=== PATIENT | female | born 1995 | race Caucasian/White ===

== ENCOUNTER → 2017-09-08 21:19 | Observation (INO) ==
--- NOTE | 2017-09-08 21:09 | Discharge Summary ---
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 (2) NST (non-stress test) reactive Priority: Secondary Status: Acute Comments: Reactive FHT 145, 10x10 accelerations, moderate variability. (3) Decreased movement during in second trimester, antepartum Priority: Primary Status: Acute Comments: Patient reports feeling positive movement on the monitor. -Reactive NST -Educate patient on anterior placental location and movement. Qualifiers: Fetus number: single or unspecified fetus Qualified Code(s): O36.8120 - Decreased movements, second trimester, not applicable or unspecified - Discharge Medications Home Medications: Pepcid 09/08/17 [History] Multi Tablet 09/08/17 [History] Allergies/Adverse Reactions: 3 Allergy/AdvReac Type Severity Reaction Status Date / Time No Known Allergies Allergy Verified 07/15/17 14:49 Date of admission: 09/08/17 20:16 Discharging clinician: Hiral Enciso Anticipated date of discharge: 09/08/17 - Patient Status Disposition: Home, Self-Care Condition: Good Functional capacity at discharge: independent ambulation Overall status at discharge: patient is back to baseline - Discharge Instructions Follow Up With: Layla Nicholas CNM [Advanced Practice Nurse] - Additional Instructions: LABOR AND DELIVERY DISCHARGE INSTRUCTIONS Signs and Symptoms to be Reported to your Doctor Immediately: * Sudden gush, continuous or intermittent lead of fluid from vagina (note the time of gush and color of fluid) * Onset of bright red vaginal bleeding with or without pain (if you had a vaginal exam during this visit you may notice some dark red spotting. This is normal.) * Lower abdominal cramping or backache that is premenstrual-like feeling. * More than 6 contractions in one hour. * Burning during urination, having to urinate more frequently or pain in your mid-back. * A change in the baby's activity. This could be an increase or decrease in activity. * Severe headache which does not go away with tylenol. * Sudden swelling in the face, hands, arms and/or legs. * Upper abdominal pain - sometimes associated with heartburn or nausea and is not relieved by Maalox, Mylanta or Tums. * Dizziness or blurred vision or visual disturbances (seeing stars/lights). * Kick Counts One hour after a meal, lay down on one side in a quiet place. Count the number of juliet the baby moves during an hour. If less than 6 movements, notify your physician. Diet: *Force fluids - 8-10 tall glasses of fluid per day. May include popsicles and jello. 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 Patient reports drink cold water and resting still unable to feel movement. Patient denies contractions, LOF or VB. After being placed on monitor patient began to feel movement. NST appropriate for gestational age. Plan to discharge home and follow up in office as scheduled. Patient educated on placental location and kick counts. Patient denies any questions or concerns. Time Attestation: Total time spent providing and/or coordinating discharge services: Time Spent: Less than 30 minutes Exam - Constitutional Vitals: 125/64, 83, 16, 98.2 General appearance IM: A&O X 3, pleasant, no acute distress - Respiratory Respiratory exam: Present: CTAB - Cardiovascular Cardiovascular exam IM: Present: RRR, systolic murmur (ejection murmur c/w functional flow murmur of ) - GI/Abdominal GI/Abdominal exam IM: normal bowel sounds, soft, no peritoneal signs - Uterus Position: 3 Fingers Above Umbilicus - Extremities Exam Extremities exam IM: Present: normal inspection, radial pulses palpable and symmetrical. Absent: pedal edema - Neurological Exam Neurological exam: no focal deficits - Other Additional findings: FHT 145, NST reactive with 10x10 accels and moderate variability. - VTE Reasons for not Prescribing Prophylaxis: Treatment not Indicated - Low risk for VTE - Attending Attestation I examined this patient and my medical decision-making was reviewed with the Resident Physician. I agree with the documented findings, disposition and treatment plan as described except to the extent set forth below. ANGELA Licea
== END | disposition home or self-care (01) ==
LOC: 1NENULAB
PROVIDERS: ADMIT Advanced Practice Midwife; ATTEND Advanced Practice Midwife

== ENCOUNTER → 2017-09-25 16:04 | Observation (INO) ==
[2017-09-25 15:21] LABS: Bilirubin,Urine Negative (Negative); Blood,Urine Negative (Negative); Clarity,Urine Cloudy (Clear); Color,Urine Yellow (Yellow); Glucose,Urine (UA) Normal (Normal); Ketones,Urine 15 mg/dL (Negative); Leukocyte Esterase,Urine Moderate (Negative); Nitrite,Urine Negative (Negative); PH,Urine 6.5 pH Units (5.0-8.0); Protein,Urine Negative (Neg-Trace); Specific Gravity,Urine 1.029 (1.010-1.025); Urobilinogen,Urine Normal (Normal)
[2017-09-25 15:23] LABS: Bacteria,Urine Moderate per hpf (None-Few); Hyaline Casts,Urine None Seen per lpf (None-Few); RBC,Urine 0-3 per hpf (0-3); Squamous Epithelial Cell,Urine Many per lpf (None-Few)
--- NOTE | 2017-09-25 15:54 | OB/GYN Progress Note ---
Date of Encounter: 09/25/17 Time of Encounter: 15:51 - Assessment and Plan (1) 28 weeks gestation of Current Visit: Yes Status: Acute Patient appears healthy in the room. NST with baseline 130BPM and reactive for GA. (2) Dehydration Current Visit: Yes Status: Acute Patient had significant ketones and increased specific gravity of the urine. Discussed the patient importance of remaining hydrated. The patient does have a bottle of pop at her bedside. Discussed the importance of drinking 8-10 glasses of water daily and the importance of decreasing her caffeinated beverage intake. Discussed if at any time she experiences worsening of her symptoms such as lightheadedness, feeling like she is going to pass out, headache, nausea, vomiting, shortness of breath, vaginal bleeding/discharge, decreased movement, or any concerning symptoms return to [place] for further evaluation and treatment. Subjective - Subjective Principal diagnosis: 28 weeks gestation; fatigue Interval history: Patient is a 22-year-old female with past medical history of presenting at 28 weeks and 5 days gestational age with a complaint of weakness. Patient states that she is having a glucose tolerance test done 3 days ago and since that time she has not felt well. She said today she was at [facility] having a finger fracture reevaluated and what her blood pressure was taken the staff told her that it was low. At this time the patient is denying any other symptoms such as fever, chills, cough or congestion, chest pain, shortness of breath, abdominal pain, flank pain, dysuria, vaginal bleeding or discharge, no cramping, no lower extremity numbness or tingling or swelling, and no headache or vision changes. Patient states that her last was at 35 weeks and she had episodes of lightheadedness and syncope and was diagnosed in the ER was having a placental tear in which she was leaking amniotic fluid which was first diagnosed at 25 weeks gestational age. However states that these symptoms are different from that time. They are not as severe. She states she has been eating and drinking okay. She states sometimes when she is feeling weak she has a caffeinated beverage in that improves her symptoms. States she is drinking plenty of water. She denies any nausea, vomiting or diarrhea. Patient sees Dr. Abel. Antepartum ROS: new complaints, movement normal Objective - Vital Signs Vital Signs: Temp 97.9F, HR 80, RR 18, BP 125/64 - Exam FHR: auscultation normal Auscultation: bilateral: normal Abdomen: Present: normal appearance, soft. Absent: tenderness Uterus: Present: normal. Absent: tenderness Comments: Patient is a well-appearing 22-year-old female at 28 weeks and 5 days gestational age. Patient's physical exam was essentially normal. Neurologically the patient is intact with no focal deficits. Heart and lung sounds were normal. No lower extremity edema. - Labs Labs: Abnormal lab results Urine Clarity Cloudy (Clear) A 09/25/17 15:17 Ur Specific [place] 1.029 (1.010-1.025) H 09/25/17 15:17 Urine Ketones 15 mg/dL (Negative) H 09/25/17 15:17 Ur Leukocyte Esterase Moderate (Negative) H 09/25/17 15:17 Urine Microscopic WBC 5-15 per hpf (0-3) H 09/25/17 15:17 Ur Squamous Epith Cells Many per lpf (None-Few) H 09/25/17 15:17 Urine Bacteria Moderate per hpf (None-Few) H 09/25/17 15:17 Ur Culture Indicated? YES (NO) A 09/25/17 15:17
[2017-09-25 23:05] LABS: Amphetamine Screen,Urine Negative ng/mL (Cutoff=1000); Barbiturate Screen,Urine Negative ng/mL (Cutoff=200); Benzodiazepines Screen,Urine Negative ng/mL (Cutoff=200); Cannabinoid Screen,Urine Negative ng/mL (Cutoff = 50); Cocaine Screen,Urine Negative ng/mL (Cutoff= 300); Opiate Screen,Urine Negative ng/mL (Cutoff=300); Phencyclidine Screen,Urine Negative ng/mL (Cutoff=25)
== END | disposition home or self-care (01) ==
LOC: 1NENULAB
PROVIDERS: ADMIT Student in an Organized Health Care Education/Training Program; ATTEND Student in an Organized Health Care Education/Training Program

== ENCOUNTER 2017-11-20 11:24 | Observation (INO) ==
[2017-11-20 12:14] LABS: Prothrombin Time 11.2 Seconds (9.4-12.1)
[2017-11-20 12:16] LABS: Activated Partial Thrombo Time 29.2 Seconds (26.0-36.0)
[2017-11-20 12:22] LABS: Amphetamine Screen,Urine Negative ng/mL (Cutoff=1000); Barbiturate Screen,Urine Negative ng/mL (Cutoff=200); Benzodiazepines Screen,Urine Negative ng/mL (Cutoff=200); Cannabinoid Screen,Urine Negative ng/mL (Cutoff = 50); Cocaine Screen,Urine Negative ng/mL (Cutoff= 300); Opiate Screen,Urine Negative ng/mL (Cutoff=300); Phencyclidine Screen,Urine Negative ng/mL (Cutoff=25)
--- NOTE | 2017-11-20 13:09 | OB/GYN Progress Note ---
Date of Encounter: 11/20/17 Time of Encounter: 13:06 - Assessment and Plan (1) 36 weeks gestation of Current Visit: Yes Status: Acute admitted for observation (2) Fall Current Visit: Yes Status: Acute monitoring for 6 hours post fall time Coags wnreyes Qualifiers: Encounter type: initial encounter Qualified Code(s): W19.XXXA - Unspecified fall, initial encounter (3) NST (non-stress test) reactive Current Visit: No Status: Acute baseline 125 bpm moderate variability +15x15 accels no decels noted. CAt. 1 tracing Subjective - Subjective Principal diagnosis: fall at 36w5d Interval history: Patient is a 22 y/o at 36w5d presents to labor and delivery with complaints of a fall this morning around 0800. Patient reports she was squatting down to put air in her car tire and slipped on the ice. Patient fell on right hip. No contact with abdomen. Patient reports irregular contractions and +FM. Patient denies LOF or VB. Antepartum ROS: movement normal, contractions, no loss of fluid, no vaginal bleeding Objective - Vital Signs Vital Signs: Intake and Output 11/19/17 11/20/17 11/20/17 23:59 07:59 15:59 Other: Weight 63.9 kg Patient Weight 11/20/17 23:59 Weight 63.9 kg - Exam FHR: auscultation normal, category 1 FHR comments: 125 bpm moderate variability +15x15 accels no decels noted. CAt. 1 tracing. Irregular contractions noted. Abdomen: Present: normal appearance, soft, gravid Uterus: Present: normal Comments: skin red on right hip, no bruising noted at this time. Patient declines need for pain intervention. - Labs Labs: Abnormal lab results Fibrinogen 509 mg/dL (169-393) H 11/20/17 11:45
--- NOTE | 2017-11-20 14:14 | Discharge Summary ---
Date of Encounter: 11/20/17 Time of Encounter: 14:13 - Discharge Diagnosis (1) 36 weeks gestation of Priority: Secondary Status: Acute Comments: admitted for observation (2) Fall Priority: Primary Status: Acute Comments: Reactive NST monitoring up to 6 hours from fall time Qualifiers: Encounter type: initial encounter Qualified Code(s): W19.XXXA - Unspecified fall, initial encounter (3) NST (non-stress test) reactive Priority: Secondary Status: Acute Comments: baseline 130 bpm moderate variability +15x15 accels no decels noted. Irregular contractions - Discharge Medications Home Medications: Multi Tablet 1 cap PO DAILY 09/08/17 [History] Allergies/Adverse Reactions: 3 Allergy/AdvReac Type Severity Reaction Status Date / Time No Known Allergies Allergy Verified 11/20/17 11:47 Data Procedures and tests throughout hospitalization: Laboratory Tests 11/20/17 11/20/17 11:45 11:45 PT 11.2 INR 1.0 APTT 29.2 Fibrinogen 509 H Urine Opiates Screen Negative Ur Barbiturates Screen Negative Ur Phencyclidine Scrn Negative Ur Amphetamines Screen Negative U Benzodiazepines Scrn Negative Urine Cocaine Screen Negative U Marijuana (THC) Screen Negative Labs on day of discharge: Labs from last 24 hours 11/20/17 11/20/17 11:45 11:45 PT 11.2 INR 1.0 APTT 29.2 Fibrinogen 509 H Urine Opiates Screen Negative Ur Barbiturates Screen Negative Ur Phencyclidine Scrn Negative Ur Amphetamines Screen Negative U Benzodiazepines Scrn Negative Urine Cocaine Screen Negative U Marijuana (THC) Screen Negative Date of admission: 11/20/17 11:24 Primary care physician: PCP NONE Discharging clinician: Hiral Enciso Anticipated date of discharge: 11/20/17 - Patient Status Disposition: Home, Self-Care Condition: Good Functional capacity at discharge: independent ambulation - Discharge Instructions Follow Up With: NONE,PCP [Primary Care Provider] - Hiral Enciso CNM [Non-Partnered Physician] - - Diet and Activity Activity: increase activity as tolerated Diet: regular diet 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 Cat. 1 tracing. SVE: /-1 - VTE Reasons for not Prescribing Prophylaxis: Treatment not Indicated - Low risk for VTE
== END 2017-11-20 14:22 | disposition home or self-care (01) ==
LOC: 1NENULAB
PROVIDERS: ADMIT Obstetrics & Gynecology; ATTEND Obstetrics & Gynecology

== ENCOUNTER 2017-12-07 06:00 | Inpatient (IN) ==
[2017-12-07] MEDS ORDERED: Famotidine 20 MG/2 ML VIAL IVP PRN (06:14)
[2017-12-07] MEDS ORDERED: Naloxone 0.4 MG/ML INJ IVP PRN (06:14)
[2017-12-07] MEDS ORDERED: Ringers Solution, Lactated 1,000 ML IVC SCH (06:15)
[2017-12-07] MEDS ORDERED: miSOPROStol 100 MCG TABLET PO STA (06:15)
--- NOTE | 2017-12-07 06:27 | OB/GYN History & Physical ---
Date of Encounter: 12/07/17 Time of Encounter: 06:25 Assessment and Plan (1) 39 weeks gestation of Current visit: Yes Status: Acute Patient 39 weeks and 1 day. Plan to do labor induction (2) Elective induction of labor planned Current visit: Yes Status: Acute We will externally monitor fetus at this time. Induced labor with 50 Cytotec by mouth. Recheck in 2-4 hours for cervical change to determine next steps. History of Present Illness HPI: Ms. Roman is a 22 year old female 101 at 39 weeks and 1 day presented to labor and delivery for labor induction. Patient was seen in the office on the and had dilation of 4 cm with 80% effacement and station -1. Patient denies any frequent or recurrent contractions. Denies any vaginal bleeding or pain. Denies any urinary symptoms. Denies any loss of fluid. Denies headaches , nausea or vomiting. Denies chest pain or shortness of breath. Patient otherwise healthy. Currently taking vitamins. Patient is HIV and Treponema negative. Rubella immune. Blood type A positive. Past Med Surg Social Fam HX - Past Medical History Medical history: no medical history Psychiatric history: no psych history - Past Surgical History Surgical History: breast surgery - Social History Smoking Status: Never smoker Smokeless Tobacco Status: No Alcohol use: none Drug use: none - Family History Mother Living Status: Still Living Hx Family Cardiac Disorders: No Hx Family Respiratory Disorders: No Hx Family Cancer: No Hx Family GI Disorders: No Hx Family Endocrine Disorder: No Hx Family Neuromuscular Disorders: No Hx Family Neurologic Disorders: No Hx Family HEENT Disorders: No Hx Family Autoimmune Disorders: No Obstetrical History - Pregnancies : 2 Para: 1 Term: 0 : 1 Ab's: 0 Livin Medications and Allergies Multi Tablet 1 cap PO DAILY 09/08/17 [History] 3 Allergy/AdvReac Type Severity Reaction Status Date / Time No Known Allergies Allergy Verified 12/07/17 06:18 Review of System OB All systems PM: reviewed and no additional remarkable complaints except as stated Exam - Constitutional Constitutional: well developed, well nourished, no acute distress, average body habitus - HEENT HEENT: Normocephaly, Mucus Membranes Moist - Neck Neck exam: full ROM, normal inspection - Lungs Respiratory exam: CTAB - Cardiovascular Cardiovascular exam: RRR - Abdomen Abdomen: Present: bowel sounds normal, gravid, non tender - Extremities Extremities exam: normal inspection - Cervix Dilation: 4 (In office on 11/30) Effacement: 80 Station: -1 - Uterus Uterus exam: Present: enlarged (gravid), normal contour - Comments Comments: I examined this patient and my medical decision-making was reviewed with the Resident Physician. I agree with the documented findings, disposition and treatment plan as described except to the extent set forth below. ANGELA Licea Results Result Diagrams: 12/07/17 06:30 All other labs normal. - VTE Reasons for not Prescribing Prophylaxis: Treatment not Indicated - Low risk for VTE
[2017-12-07] MEDS ORDERED: Ondansetron ODT 4 MG TAB.RAPDIS SL PRN (06:29)
[2017-12-07 06:37] LABS: Basophils % 0.3 %; Eosinophils # 0.1 K/mcL (0.0-0.6); Eosinophils % 0.7 %; Hematocrit 34.7 % (35.3-44.9); Hemoglobin 11.8 g/dL (11.5-15.4); Immature Granulocytes % 0.9 % (0-4); Lymphocytes # 2.4 K/mcL (0.6-4.6); Mean Corpuscular Hemoglobin 28.8 pg (28.0-33.3); Mean Corpuscular Volume 84.6 fL (83.0-100.0); Monocytes # 0.5 K/mcL (0.0-1.3); Monocytes % 4.9 %; Neutrophils # 7.2 K/mcL (1.6-8.9); Platelet Count 203 K/mcL (140-400); Red Cell Distribution Width 12.8 % (11.5-14.5); Segmented Neutrophils % 70.2 %
[2017-12-07 06:47] LABS: Amphetamine Screen,Urine Negative ng/mL (Cutoff=1000); Barbiturate Screen,Urine Negative ng/mL (Cutoff=200); Benzodiazepines Screen,Urine Negative ng/mL (Cutoff=200); Cannabinoid Screen,Urine Negative ng/mL (Cutoff = 50); Cocaine Screen,Urine Negative ng/mL (Cutoff= 300); Opiate Screen,Urine Negative ng/mL (Cutoff=300); Phencyclidine Screen,Urine Negative ng/mL (Cutoff=25)
--- NOTE | 2017-12-07 11:26 | OB Labor Progress Note ---
Date of Encounter: 12/07/17 Time of Encounter: 11:22 Labor Progress Note - Subjective Subjective: Patient sitting up in bed. Patient denies any pain at this time. Discussed POC with patient. Patient denies any questions or concerns. - Cervix Cervix: 5/90/0 - Heart Tones Heart Tones: FHR 145 bpm moderate variability +15x15 accels no decels noted. CAt. 1 tracing - [place]: 1.5-4 min apart - Interventions Interventions: SVE, AROM moderate amount of clear fluid noted. IUPC placed without difficulty. Patient tolerated well. - Plan Plan: Continue labor management. Anesthesia notified patient requesting epidural.
[2017-12-07] MEDS ORDERED: Bupivacaine-MPF 0.25% 10 ML VIAL EP ONE (11:37)
[2017-12-07] MEDS ORDERED: *HR* FentaNYL (PF) 100 MCG/2 ML VIAL EP ONE (11:37)
[2017-12-07] MEDS ORDERED: *HR* FentaNYL (PF) 100 MCG/2 ML VIAL ONE (11:39)
[2017-12-07] MEDS ORDERED: Epidural Premix (fent/bupiv) 110 ML EP ONE (11:39)
[2017-12-07] MEDS ORDERED: Bupivacaine-MPF 0.25% 10 ML VIAL ONE (11:39)
[2017-12-07] MEDS ORDERED: Oxytocin 20 units/ LR 1000 mL 20 UNIT/1,000 ML BAG IVC ONE (11:41)
[2017-12-07] MEDS ORDERED: Epidural Premix (fent/bupiv) 110 ML EP SCH (11:45)
[2017-12-07] MEDS ORDERED: Oxytocin 20 units/ LR 1000 mL 20 UNIT/1,000 ML BAG IVC SCH ×3 (12:15→18:59)
--- NOTE | 2017-12-07 13:06 | Anesthesia Evaluation PreOp ---
Date of Encounter: 12/07/17 Time of Encounter: 11:27 - Past History Planned Operation: labor epidural Cardiac History: Denies any Significant Hx Pulmonary History: Denies Any Significant HX SOCIAL AND POLITICAL STUDIES PROFESSOR History: Denies Any Significant HX Other Medical History: Denies Any Significant HX Anesthesia History: No Prior Anesthetic Complications, Past Anesthesia (Exc. left breast cyst. No FHAP.) : Yes Alcohol Use: none Drug use: none Medications and Allergies Multi Tablet 1 cap PO DAILY 09/08/17 [History] 3 Allergy/AdvReac Type Severity Reaction Status Date / Time No Known Allergies Allergy Verified 12/07/17 06:18 - Meds/Allergy Pre-op Review Medications Reviewed: Yes Allergies Reviewed: Yes Beta Blockers on Current Med List: No Anesthesia Results - Labs 12/07/17 06:30 Anesthesia Exam 116/78, 80, 20. FHTs 140s. Height: 5'1" Weight: 67kg NPO (# of Hours): 6 Pain Scale: 5 Pain Scale Used: Numeric (1 - 10) - HEENT Pupil (Motor): Pupils equal Mallampati: II Teeth: Normal Oral Opening: Greater than 3 - SOCIAL AND POLITICAL STUDIES PROFESSOR LOC: Oriented SOCIAL AND POLITICAL STUDIES PROFESSOR Motor: Normal RUE, Normal LUE, Normal RLE, Normal LLE, Normal Face SOCIAL AND POLITICAL STUDIES PROFESSOR Sensory: Normal: RUE, LUE, RLE, LLE, Face - Cardiac Rhythm: Regular - Pulmonary Breath Sounds: bilateral Clear Respiratory Effort: Symmetrical Anesthesia Assess/Plan ASA Score: 2 Modified Magaly Scale for Level of Consciousness: Cooperative, oriented, and tranquil Anesthetic Plan: Regional Monitoring Plan: Standard Monitors
--- NOTE | 2017-12-07 13:10 | Anesthesia Procedures ---
Date of Encounter: 12/07/17 Time of Encounter: 11:43 Procedures: Anesthesia - Epidural/Spinal Patient ID/Chart reviewed: Yes Patient examined: Yes OB Eval: Gestational age: 39 OB Eval: : 2 OB Eval: Hx Para: 1 OB Eval: Dilated at (cm): 5 OB Eval: Contractions: Non-stressed pattern Consent Obtained: Yes Supplemental Oxygen: None/Room Air Site Prep: Aseptic Technique, Sterile prep and drape, Povidone-Iodine 1% Patient position: upright Local Anesthetic: Lidocaine 1% Amount of Local Anesthetic used: 3 Touhy Needle Gauge: 18 Touhy Needle Depth (cm): 5 Catheter Depth at Skin (cm): 18 Test Dose (1.5% Lido + Epi): Volume given (mls): 3 Test Dose Result: Negative Loading Dose: 0.25% Marcaine (mls): 8 Loading Dose: Fentanyl (mcg): 100 Loading Dose Administered: Thru Catheter Infusion Med: 0.125% Bupivacaine w/ 2 mcg/ml Fentanyl Infusion Rate (mls/hr): [address]: Tegaderm, Tape Interspace Used: L3-L4 Loss of Resistance (MARK): Yes Blood: No CSF: No Paresthesia: No Vitals + FHT's: 3 Vital Signs Time 1143 1157 1202 1205 BP 116/73 118/60 117/67 111/68 Pulse 80 90 71 81 FHTs 150 140 140 140
--- NOTE | 2017-12-07 14:48 | OB Labor Progress Note ---
Date of Encounter: 12/07/17 Time of Encounter: 14:46 Labor Progress Note - Subjective Subjective: Patient resting in bed with epidural in place. Patient denies any questions or concerns. - Cervix Cervix: 8/100/0 - Heart Tones Heart Tones: 145 bpm moderate variability +15x15 accels variables noted - [place]: 2-3 min apart - Interventions Interventions: SVE, Patient repositioned - Plan Plan: Continue labor management anticipate
[2017-12-07] MEDS ORDERED: Acetaminophen 325 MG TABLET PO PRN ×2 (16:36→18:59)
[2017-12-07] MEDS ORDERED: Ibuprofen 600 MG TABLET PO PRN (16:36)
[2017-12-07] MEDS ORDERED: Sennosides 8.6 MG TABLET PO PRN ×2 (16:36→18:59)
[2017-12-07] MEDS ORDERED: Benzocaine/Menthol 56 GM AEROSOL SPRAY TP PRN ×2 (16:37→18:59)
--- NOTE | 2017-12-07 16:42 | OB/GYN Procedure Note ---
Delivery - Delivery Date: 12/07/17 Provider: Hiral Enciso (Jackie, PGY!) Intrapartum events: none Delivery induction: AROM, oxytocin, misoprostol Delivery monitor: external FHT, external uterine, internal uterine Anesthesia: epidural Estimated Blood Loss: 200 - Infant (s) A Delivery Date: 12/07/17 Delivery Time: 16:21 Presentation: vertex Position: CLAUDIA Route of delivery: Gender: Male Viability: Viable Pounds: 7 Ounces: 14 Weight Gram: 3580 kg at 1 minute: 8 at 5 mins: 10 Shoulder Dystocia: not encountered Specimens collected: cord blood Placenta: spontaneous Cord: 3 umbilical vessels - Repair Episiotomy: none Laceration Description: Periurethral (hemostatic) - Complications Delivery complications: none - Disposition Mom disposition: stable in LDR disposition: stable in LDR - Comments Comments: Called to LDR patient complete and feeling pressure. Patient placed in stirrups and prepped for vaginal delivery. Under maternal effort patient spontaneously delivered a viable male . No nuchal, shoulder dystocia or meconium was encountered. Infant placed on maternal abdomen. Cord was clamped and cut after pulsation ceased. Placenta delivered spontaneously and intact. Pericare provided. Mother and infant stable in LDR for 2 hour recovery.
[2017-12-07] MEDS: Ibuprofen 600 MG TABLET PO PRN (20:07)
[2017-12-08 08:12] VITALS: BP 104/67
[2017-12-08] MEDS ORDERED: Prenatal Vit/FA 1 EACH TABLET PO SCH ×2 (09:00)
--- NOTE | 2017-12-08 09:27 | Discharge Summary ---
Date of Encounter: 12/08/17 Time of Encounter: 09:24 - Discharge Diagnosis (1) Vaginal delivery Priority: Primary Status: Acute Comments: Pt states she is feeling well today Bottle feeding Voiding and stooling independently Pain controlled with po pain medication Tolerating regular diet Ambulating independently VSS Pt desires discharge home today - Discharge Medications Prescriptions: Ibuprofen [Motrin] 600 mg PO Q6HR PRN #60 tablet PRN Reason: Cramping Docusate [Colace] 100 mg PO BID #60 capsule Home Medications: Multi Tablet 1 cap PO DAILY 09/08/17 [History] Acetaminophen [Tylenol] 650 mg PO Q6HR PRN tablet 12/08/17 [Rx] Benzocaine/Menthol [place] [Dermoplast [place]] 1 appl TP QID PRN aerosol 12/08/17 [Rx] Docusate [Colace] 100 mg PO BID #60 capsule 12/08/17 [Rx] Ibuprofen [Motrin] 600 mg PO Q6HR PRN #60 tablet 12/08/17 [Rx] Vit/FA 1 each PO DAILY tablet 12/08/17 [Rx] Allergies/Adverse Reactions: 3 Allergy/AdvReac Type Severity Reaction Status Date / Time No Known Allergies Allergy Verified 12/07/17 06:18 Data Procedures and tests throughout hospitalization: Laboratory Tests 12/07/17 12/07/17 06:29 06:30 WBC 10.3 RBC 4.10 Hgb 11.8 Hct 34.7 L MCV 84.6 MCH 28.8 MCHC 34.0 RDW 12.8 Plt Count 203 MPV 11.0 Immature Gran % 0.9 Seg Neutrophils % 70.2 Lymphocytes % 23.0 Monocytes % 4.9 Eosinophils % 0.7 Basophils % 0.3 Neutrophils # 7.2 Lymphocytes # 2.4 Monocytes # 0.5 Eosinophils # 0.1 Basophils # 0.0 Urine Opiates Screen Negative Ur Barbiturates Screen Negative Ur Phencyclidine Scrn Negative Ur Amphetamines Screen Negative U Benzodiazepines Scrn Negative Urine Cocaine Screen Negative U Marijuana (THC) Screen Negative Date of admission: 12/07/17 06:09 Primary care physician: PCP NONE Discharging clinician: Layla Figueroa Anticipated date of discharge: 12/08/17 - Patient Status Disposition: Home, Self-Care Condition: Good Functional capacity at discharge: independent ambulation Overall status at discharge: patient is progressing back to baseline - Discharge Instructions Follow Up With: NONE,PCP [Primary Care Provider] - Hiral Enciso CNM [Non-Partnered Physician] - - Diet and Activity Activity: increase activity as tolerated Diet: regular diet Hospital Course Reason for admission: induction of labor, IUP at term Delivery: Episiotomy: none Laceration: none Other procedures: none complications: none Discharge diagnosis: IUP at term delivered baby: male Hospital course: Delivery Date: 12/07/17 Provider: Hiral Enciso (Jackie, PGY!) Intrapartum events: none Delivery induction: AROM, oxytocin, misoprostol Delivery monitor: external FHT, external uterine, internal uterine Anesthesia: epidural Estimated Blood Loss: 200 - (s) Infant A Delivery Date: 12/07/17 Infant Delivery Time: 16:21 Presentation: vertex Position: CLAUDIA Route of delivery: Gender: Male Viability: Viable Pounds: 7 Ounces: 14 Weight Gram: 3580 kg at 1 minute: 8 at 5 mins: 10 Shoulder Dystocia: not encountered Specimens collected: cord blood Placenta: spontaneous Cord: 3 umbilical vessels - Repair Episiotomy: none Laceration Description: Periurethral (hemostatic) - Complications Delivery complications: none - Disposition Mom disposition: stable in PP and appropriate for discharge - Comments Comments: Called to LDR patient complete and feeling pressure. Patient placed in stirrups and prepped for vaginal delivery. Under maternal effort patient spontaneously delivered a viable male . No nuchal, shoulder dystocia or meconium was encountered. Infant placed on maternal abdomen. Cord was clamped and cut after pulsation ceased. Placenta delivered spontaneously and intact. Pericare provided. Mother and infant stable in LDR for 2 hour recovery. Time Attestation: Total time spent providing and/or coordinating discharge services: Time Spent: Less than 30 minutes Exam - Constitutional Vitals: Temp Pulse Resp BP Pulse Ox 97.8 F 66 16 104/67 100 12/08/17 07:30 12/08/17 07:30 12/08/17 07:30 12/08/17 07:30 12/08/17 06:45 General appearance IM: A&O X 3 - Respiratory Respiratory exam: Present: CTAB - Cardiovascular Cardiovascular exam IM: Present: RRR, +S1, +S2 - GI/Abdominal GI/Abdominal exam IM: normal bowel sounds - Rectal Rectal exam: deferred - Uterine Tone: Firm Uterus Position: 2 Fingers Below Umbilicus - Extremities Exam Extremities exam IM: Present: full ROM, pedal edema - Neurological Exam Neurological exam: oriented X3 - Psychiatric Additional comments: Pt reports she is feeling well and in good spirits.
[2017-12-08] MEDS: Ibuprofen 600 MG TABLET PO PRN (10:09)
== END 2017-12-08 17:00 | disposition home or self-care (01) | DRG 775 ==
LOC: 1NENULAB 06:09 → 1NENUOBS 18:58
PROVIDERS: ADMIT Advanced Practice Midwife; ATTEND Advanced Practice Midwife

== ENCOUNTER → 2022-08-15 22:51 | Observation (INO) ==
[2022-08-15 18:42] LABS: Bacteria,Urine Few per hpf (None-Few); Bilirubin,Urine Negative (Negative); Blood,Urine Negative (Negative); Clarity,Urine Turbid (Clear); Color,Urine Light-Yellow (Yellow); Glucose,Urine (UA) Normal (Normal); Ketones,Urine Negative (Negative); Leukocyte Esterase,Urine Small (Negative); Mucus,Urine Few per lpf (None-Few); Nitrite,Urine Negative (Negative); PH,Urine 6.5 pH Units (5.0-8.0); Protein,Urine Trace mg/dL (Neg-Trace); RBC,Urine 0-3 per hpf (0-3); Specific Gravity,Urine 1.018 (1.010-1.025); Squamous Epithelial Cell,Urine Moderate per hpf (None-Few); Urobilinogen,Urine Normal (Normal)
== END | disposition home health service (06) ==
LOC: 1NENULAB
PROVIDERS: ADMIT Registered Nurse; ATTEND Registered Nurse

== ENCOUNTER → 2022-09-01 08:10 | Observation (INO) ==
[2022-08-31 18:11] LABS: Bacteria,Urine Few per hpf (None-Few); Bilirubin,Urine Negative (Negative); Blood,Urine Negative (Negative); Clarity,Urine Turbid (Clear); Color,Urine Light-Yellow (Yellow); Glucose,Urine (UA) Normal (Normal); Ketones,Urine Negative (Negative); Leukocyte Esterase,Urine Moderate (Negative); Mucus,Urine Few per lpf (None-Few); Nitrite,Urine Negative (Negative); Protein,Urine Trace mg/dL (Neg-Trace); RBC,Urine 0-3 per hpf (0-3); Specific Gravity,Urine 1.015 (1.010-1.025); Squamous Epithelial Cell,Urine Moderate per hpf (None-Few); Urobilinogen,Urine Normal (Normal); WBC,Urine 0-3 per hpf (0-3)
[2022-08-31 18:15] LABS: Basophils # 0.1 K/mcL (0.0-0.2); Basophils % 0.4 %; Eosinophils # 0.1 K/mcL (0.0-0.6); Eosinophils % 0.8 %; Hematocrit 30.8 % (35.3-44.9); Hemoglobin 10.7 g/dL (11.5-15.4); Immature Granulocytes % 1.2 % (0-4); Lymphocytes # 1.8 K/mcL (0.6-4.6); Lymphocytes % 16.1 %; Mean Corpuscular HGB Conc 34.7 g/dL (31.6-35.5); Mean Corpuscular Hemoglobin 29.4 pg (28.0-33.3); Mean Corpuscular Volume 84.6 fL (83.0-100.0); Mean Platelet Volume 10.5 fL (9.4-12.4); Monocytes # 0.8 K/mcL (0.0-1.3); Monocytes % 6.8 %; Neutrophils # 8.3 K/mcL (1.6-8.9); Platelet Count 226 K/mcL (140-400); Red Blood Count 3.64 M/mcL (3.82-4.97); Red Cell Distribution Width 12.4 % (11.5-14.5); Segmented Neutrophils % 74.7 %; White Blood Count 11.2 K/mcL (4.3-11.1)
[~2022-09-01 08:10] MED LIST: Ringers Solution, Lactated 1,000 ML IVC ONE; Ringers Solution, Lactated 1,000 ML IVC SCH; Ringers Solution, Lactated 1,000 ML ONE
== END | disposition home or self-care (01) ==
LOC: 1NENULAB
PROVIDERS: ADMIT Registered Nurse; ATTEND Registered Nurse